=== PATIENT | male | born 1970 | race Caucasian/White ===

== ENCOUNTER 2019-05-21 08:00 | Day surgery (SDC) | payer OTHER ==
[~2019-05-21] VITALS: Ht 165.1 cm; Wt 74.8 kg
[2019-05-21] MEDS ORDERED: fentaNYL 0.05 MG/ML VIAL ONE (10:30)
[2019-05-21] MEDS ORDERED: LIDOCAINE 2% 100 MG/5 ML UJET TP ONE (10:31)
[2019-05-21] MEDS ORDERED: LIDOCAINE VISCOUS 2% 20 ML UDC ONE (10:31)
[2019-05-21] MEDS ORDERED: MIDAZOLAM 2 MG/2 ML VIAL ONE (10:31)
== END 2019-05-21 12:15 | disposition home health service (06) ==
LOC: MDS 08:00 → MMU 08:01 → MDS 12:15
PROVIDERS: ATTEND Internal Medicine Gastroenterology
DX: R19.7 Diarrhea, unspecified (principal); E78.00 Pure hypercholesterolemia, unspecified
CPT/HCPCS: 36415; 43239; 45380; 86677; J2250; J3010; J7030